=== PATIENT | female | born 1940 | race Caucasian/White ===

== ENCOUNTER → 2025-03-03 | Outpatient (CLI) | payer MEDICARE | LOC: M PLARAD 12:01 | PROVIDERS: ATTEND Surgery Surgical Oncology | DX: K31.89 Other diseases of stomach and duodenum (principal); J90 Pleural effusion, not elsewhere classified; R93.3 Abnormal findings on diagnostic imaging of other parts of digestive tract | CPT/HCPCS: 78815; A9552 ==